=== PATIENT | female | born 1960 | race Caucasian/White ===

== ENCOUNTER 2017-04-19 06:16 | Day surgery (SDC) | payer OTHER ==
[~2017-04-19] VITALS: Ht 170.2 cm; Wt 63.0 kg
--- NOTE | 2017-04-19 08:13 | NUR ---
04/19/17 0813 Trisha Farmer [id number]-PATIENT ARRIVED TO PACU ON 4L NC O2 SAT 97% PATIENT REACTIVE TO VOICE ENCOURAGED TO PASS FLATUS WEANED TO 2L NC. ABDOMEN SOFT.
--- NOTE | 2017-04-19 17:15 | OR ---
[facility] [address], [place] [address] Signed DATE OF OPERATION: 04/19/2017 SURGEON: Queenie Pelayo MD PREOPERATIVE DIAGNOSES: 1. Early satiety. 2. Epigastric and left upper quadrant abdominal pain. 3. Screening. POSTOPERATIVE DIAGNOSES: 1. Mild distal gastritis. 2. Minimal diverticulosis. 3. Long, redundant, narrow colon. PROCEDURE: 1. EGD with CLOtest and biopsies of the antrum and GE junction. 2. Colonoscopy without biopsy. ESTIMATED BLOOD LOSS: None. INDICATIONS: Natty is a 56-year-old female, asked to see me for both upper and lower endoscopy. She is describing early satiety with epigastric and left upper quadrant abdominal pain. She is not sure if it is where the muscle inserts up on the ribs, but if she tries to the eat meat or pasta, she fills up very quickly and feels full in that area. She has been a long-time rancher and she is concerned that maybe something is wrong in that area of her body. She told me her brother of lung cancer, but never was a smoker. In addition, she is in need of screening colonoscopy. Apparently, her has been through a colonoscopy. She told me there is no family history of colon cancer or polyps and she does not have any lower GI complaints. In the office, I gave her a pamphlet on upper and lower endoscopy. We looked at that together along with the risks including, but not limited to gas, bloating, crampy abdominal pain, bleeding, perforation requiring surgery, and missed diagnosis. She also understands the need for IV conscious sedation. She had expressed understanding and wished to proceed. PROCEDURE NOTE: Natty was taken into the endoscopy suite and placed in the supine semi-recumbent position. The posterior oropharynx was anesthetized with Hurricaine spray. A bite block was utilized for the case. She was given a total of 10 mg of Versed and 200 mcg of Electronically Signed By: QUEENIE PELAYO MD 04/19/17 1715 PATIENT NAME: NATTY COLEMAN OPERATIVE REPORT DATE OF : 62 PHYSICIAN: QUEENIE PELAYO MD REPORT #: [id number] REPORT IS CONFIDENTIAL AND NOT TO BE RELEASED WITHOUT AUTHORIZATION [facility] [address], [place] [address] Signed Fentanyl to cover both upper and lower endoscopy. The adult gastroscope was introduced and advanced out into the third portion of the duodenum under direct visualization of the camera without difficulty. Her duodenum and pyloric channel were unremarkable. The distal half of the stomach showed very mild superficial erythematous changes consistent with mild gastritis. We took a biopsy for pathologic review as well as CLOtest. Upon retroflexion of the scope, I saw no evidence of a hiatal hernia. There are no gastric or esophageal varices. There were no ulcerations. The scope was withdrawn up through the area of the GE junction, which was compliant without stricture. However, there was a little inflammation around the GE junction. Consequently, we went ahead and took a biopsy of that area. The middle and upper esophagus were unremarkable. After this, the gas was suctioned out and the gastroscope removed. Natty tolerated the procedure quite well. Natty was then rotated into the left lateral decubitus position. She was maintained on IV sedation with Versed and fentanyl. A digital rectal exam was performed and this was unremarkable. The adult colonoscope was introduced and advanced all the way around into the cecum under direct visualization. It took extra sedation and abdominal compression and rolling Natty on the table in order to get the camera to pass. We eventually made it through a very long, narrow, redundant sigmoid and left colon. We finally made it around the hepatic flexure and down into the cecum itself. Her prep was quite excellent. The scope was then slowly withdrawn. We saw a few diverticula scattered throughout the colon. The rectum was unremarkable. Upon retroflexion of scope, there was no additional pathology noted above the anal canal. After this, the gas was suctioned out and the colonoscope removed. Natty tolerated the procedure quite well. RECOMMENDATIONS: I will see Natty back in my office in 7 to 14 days to review her results. She may indeed have a functional bowel disorder. Queenie Pelayo MD ALB/MODL /[id number] Electronically Signed By: QUEENIE PELAYO MD 04/19/17 1715 PATIENT NAME: NATTY COLEMAN OPERATIVE REPORT DATE OF : 62 PHYSICIAN: QUEENIE PELAYO MD REPORT #: [id number] REPORT IS CONFIDENTIAL AND NOT TO BE RELEASED WITHOUT AUTHORIZATION [address] [address] Signed cc: Gabriella Salmon PA-C Electronically Signed By: QUEENIE PELAYO MD 04/19/17 1715 PATIENT NAME: NATTY COLEMAN OPERATIVE REPORT DATE OF : 62 PHYSICIAN: QUEENIE PELAYO MD REPORT #: [id number] REPORT IS CONFIDENTIAL AND NOT TO BE RELEASED WITHOUT AUTHORIZATION
== END 2017-04-19 08:50 | disposition home or self-care (01) ==
LOC: DS 06:16 → OPS 06:16 → DS 09:00
PROVIDERS: Colon & Rectal Surgery
PROC: 0DB68ZX Excision of Stomach, Via Natural or Artificial Opening Endoscopic, Diagnostic (ICD-10-PCS; 2017-04-19)
PROC: 0DJD8ZZ Inspection of Lower Intestinal Tract, Via Natural or Artificial Opening Endoscopic (ICD-10-PCS; principal; 2017-04-19 09:00)
PROC: 0DB48ZX Excision of Esophagogastric Junction, Via Natural or Artificial Opening Endoscopic, Diagnostic (ICD-10-PCS; 2017-04-19 09:00)
DX: Z12.11 Encounter for screening for malignant neoplasm of colon (principal); K57.30 Diverticulosis of large intestine without perforation or abscess without bleeding; K29.50 Unspecified chronic gastritis without bleeding; K20.9 Esophagitis, unspecified; Z86.03 Personal history of neoplasm of uncertain behavior
CPT/HCPCS: 86677; 99152; 99153; J2250; J3010; J7120